=== PATIENT | female | born 1975 | race Caucasian/White ===

== ENCOUNTER 2018-03-19 17:34 | Emergency (ER) | payer OTHER ==
[~2018-03-19 17:34] MED LIST: METH750T2 PO; MOBI15TA PO
[2018-03-19 17:36] VITALS: BP 164/83; PULSE 107; RESP 20; TEMP 98.8; O2SAT 99
[2018-03-19 18:15] VITALS: BP 130/63; PULSE 102; RESP 18; O2SAT 100
--- NOTE | 2018-03-19 18:23 | PD ---
HPI Chief Complaint: Cardiac Complaint Time Seen by Provider: 17:50 Travel History International Travel<30 days: No Contact w/Intl Traveler<30days: No Traveled to known affect area: No History of Present Illness HPI The patient was seen and examined in the presence of the nurse. This patient has been having spells of palpitations for 7 days. They last a few minutes and resolved. No loss of consciousness occurs. When they occur she does feel like her heart is racing and she feels lightheaded and flushed. No chest pain is involved. She is currently symptom-free. No alleviating factors. No exacerbating factors. PFSH Past Medical History Asthma: Yes Diminished Hearing: No Herniated Disk: Yes (neck) Tubal Ligation: Yes Past Surgical History Appendectomy: Yes Social History Alcohol Use: Yes (couple of beers) Tobacco Use: No Substance Use: No Allergies-Medications (Allergen,Severity, Reaction): Coded Allergies: No Known Allergies (Unverified Adverse Reaction, Unknown, 03/19/18) Reported Meds & Prescriptions Reported Meds & Active Scripts Active Reported Rizatriptan Odt (Rizatriptan Benzoate) 10 Mg Tab Vjcqimlbpw-Pgrlfizltobfu-Yeojinck 50-325-40 Mg Tab 1 Tab PO QID PRN Do not exceed 6 tablets/day. Review of Systems General / Constitutional: No: Fever Eyes: No: Visual changes HENT: Positive: Lightheadedness, No: Headaches Cardiovascular: Positive: Palpitations, Tachycardia, No: Chest Pain or Discomfort Respiratory: No: Shortness of Breath Gastrointestinal: No: Abdominal Pain Genitourinary: No: Dysuria Musculoskeletal: No: Pain Skin: No Rash Neurologic: No: Weakness Psychiatric: No: Depression Endocrine: No: Polydipsia Hematologic/Lymphatic: No: Easy Bruising Physical Exam Narrative GENERAL: Well-nourished, well-developed patient in no apparent distress. SKIN: Focused skin assessment reveals no rash and nodules. Skin is Warm and dry. HEAD: Atraumatic. Normocephalic. EYES: Pupils equal and round. No scleral icterus. No injection or drainage. ENT: No nasal bleeding or discharge. Mucous membranes pink and moist. NECK: Trachea midline. No JVD. CARDIOVASCULAR: Regular rate and rhythm. No murmur appreciated. RESPIRATORY: No accessory muscle use. Clear to auscultation. Breath sounds equal bilaterally. GASTROINTESTINAL: Abdomen soft, non-tender, nondistended. Hepatic and splenic margins not palpable. MUSCULOSKELETAL: No obvious deformities. No clubbing. No cyanosis. No edema. NEUROLOGICAL: Awake and alert. No obvious cranial nerve deficits. Motor grossly within normal limits. Normal speech. PSYCHIATRIC: Appropriate mood and affect; insight and judgment normal. Data Data Last Documented VS Vital Signs Date Time Temp Pulse Resp B/P (MAP) Pulse Ox O2 Delivery O2 Flow Rate FiO2 03/19/18 18:40 92 18 99 Room Air 03/19/18 18:15 130/63 (85) 03/19/18 17:36 98.8 Orders Orders Electrocardiogram (03/19/18 18:20) Basic Metabolic Panel (Bmp) (03/19/18 18:20) Complete Blood Count With Diff (03/19/18 18:20) Magnesium (Mg) (03/19/18 18:20) Prothrombin Time / Inr (Pt) (03/19/18 18:20) Act Partial Throm Time (Ptt) (03/19/18 18:20) Ecg Monitoring (03/19/18 18:20) Iv Access Insert/Monitor (03/19/18 18:20) Oximetry (03/19/18 18:20) Sodium Chloride 0.9% Flush (Ns Flush) (03/19/18 18:30) Thyroid Stimulating Hormone (03/19/18 18:20) Labs Laboratory Tests Test 03/19/18 18:45 White Blood Count 11.3 TH/MM3 Red Blood Count 4.48 MIL/MM3 Hemoglobin 12.0 GM/DL Hematocrit 36.9 % Mean Corpuscular Volume 82.4 FL Mean Corpuscular Hemoglobin 26.7 PG Mean Corpuscular Hemoglobin Concent 32.5 % Red Cell Distribution Width 14.4 % Platelet Count 323 TH/MM3 Mean Platelet Volume 8.3 FL Neutrophils (%) (Auto) 68.1 % Lymphocytes (%) (Auto) 23.0 % Monocytes (%) (Auto) 6.4 % Eosinophils (%) (Auto) 1.8 % Basophils (%) (Auto) 0.7 % Neutrophils # (Auto) 7.7 TH/MM3 Lymphocytes # (Auto) 2.6 TH/MM3 Monocytes # (Auto) 0.7 TH/MM3 Eosinophils # (Auto) 0.2 TH/MM3 Basophils # (Auto) 0.1 TH/MM3 CBC Comment DIFF FINAL Differential Comment Prothrombin Time 10.0 SEC Prothromb Time International Ratio 1.0 RATIO Activated Partial Thromboplast Time 25.9 SEC Blood Urea Nitrogen 10 MG/DL Creatinine 0.94 MG/DL Random Glucose 94 MG/DL Calcium Level 9.3 MG/DL Magnesium Level 2.1 MG/DL Sodium Level 139 MEQ/L Potassium Level 4.0 MEQ/L Chloride Level 105 MEQ/L Carbon Dioxide Level 23.1 MEQ/L Anion Gap 11 MEQ/L Estimat Glomerular Filtration Rate 65 ML/MIN Thyroid Stimulating Hormone 3rd Gen 2.520 uIU/ML MDM Medical Decision Making Medical Screen Exam Complete: Yes Emergency Medical Condition: Yes Medical Record Reviewed: Yes Differential Diagnosis A. fib, SVT, ventricular tachycardia Narrative Course I have reviewed the patient's electronic medical record. IV placed and labs sent Extended cardiac monitoring shows no arrythmia I reviewed her EKG which is normal labs are normal she has had no episodes in 4+ hours and wants to go home. she should discuss holter moniter with her doctor. Diagnosis Primary Impression: Palpitations Additional Impression: Light headedness Additional Instructions: follow up with primary MD Med/Other Pt SpecificInfo: Other Disposition: 01 DISCHARGE HOME Condition: Stable Adrian Corral MD March 19, 2018 18:23
[2018-03-19] MEDS ORDERED: SODIUM CHLORIDE 0.9% FLUSH 10 ML FLUSH IVF PRN (18:30)
[2018-03-19] MEDS ORDERED: BUTATAB6 PO (18:54)
[2018-03-19] MEDS ORDERED: RIZA10TA4 (18:54)
[2018-03-19 19:07] LABS: AUTOMATED NEUTROPHIL # 7.7 TH/MM3 (1.8-7.7); BASOPHIL # 0.1 TH/MM3 (0-0.2); BASOPHIL % 0.7 % (0.0-2.0); EOSINOPHIL # 0.2 TH/MM3 (0-0.4); EOSINOPHIL % 1.8 % (0.0-4.0); HEMATOCRIT 36.9 % (35.0-46.0); LYMPHOCYTE # 2.6 TH/MM3 (1.0-4.8); MEAN CELL VOLUME 82.4 FL (80.0-100.0); MEAN CORPUSCULAR HEMOGLOBIN 26.7 PG (27.0-34.0); MEAN CORPUSCULAR HGB CONC 32.5 % (32.0-36.0); MEAN PLATELET VOLUME 8.3 FL (7.0-11.0); MONO % 6.4 % (0.0-8.0); MONOCYTE # 0.7 TH/MM3 (0-0.9); NEUT % 68.1 % (16.0-70.0); PLATELET COUNT 323 TH/MM3 (150-450); RED BLOOD COUNT 4.48 MIL/MM3 (4.00-5.30); RED CELL DISTRIBUTION WIDTH 14.4 % (11.6-17.2); WHITE BLOOD COUNT 11.3 TH/MM3 (4.0-11.0)
[2018-03-19 19:33] LABS: BICARBONATE 23.1 MEQ/L (21.0-32.0); CALCIUM 9.3 MG/DL (8.5-10.1); CREATININE 0.94 MG/DL (0.50-1.00); MAGNESIUM 2.1 MG/DL (1.5-2.5)
[2018-03-19 22:32] VITALS: BP 135/61
--- NOTE | 2018-03-21 08:19 | EKG ---
Date Performed: 03/19/2018 Time Performed: 18:25:26 PTAGE: 42 years EKG: Sinus rhythm NORMAL ECG PREVIOUS TRACING : 06/23/2014 21.55 DOCTOR: Kyle Deshpande Interpretating Date/Time 03/21/2018 08:14:35
== END 2018-03-19 22:39 | disposition home or self-care (01) ==
LOC: NEPD 17:34
DX: R00.2 Palpitations (principal); R42 Dizziness and giddiness; Z79.899 Other long term (current) drug therapy
CPT/HCPCS: 80048; 83735; 84443; 85025; 85610; 85730; 93005; 99284

== ENCOUNTER → 2018-04-02 | Outpatient (CLI) | payer OTHER ==
[~2018-04-02] MED LIST changes: +BUTATAB6 PO; -METH750T2 PO; -MOBI15TA PO; +RIZA10TA4
--- NOTE | 2018-04-04 15:44 | HM ---
Date Performed: 04/02/2018 Time Performed: 14:11:00 HOOKUP DATE: 04/02/18 02:11:00 PM Wed ANALYSIS START TIME: 04/02/2018 2:16:00 PM ANALYSIS END TIME: 04/03/2018 2:11:33 PM PATIENT AGE: 42 PATIENT HEIGHT PATIENT WEIGHT DRUG LIST PATIENT DIAGNOSIS: palpitations TEST NARRATIVE: The patient's average heart rate was 90 BPM. Heart rates greater than 120 B PM were noted 9% of the time. No episodes of bradycardia were noted. No pauses exceeding 2.0 sec onds were noted. 100 ventricular ectopics, which represented < 1% of the total beat count, were n oted. The highest ventricular ectopic frequency occurred from 06:00 AM to 07:00 AM [place]. During this time 16 VE(s) occurred. Ventricular ectopics were observed as 100 isolated beat(s) only. No couple ts or runs were noted. No supraventricular ectopics were noted. No episodes of ST depression (defined as -1.0 mm or more) were noted in channel 1. No episodes of ST depression (defined as -1.0 mm or more) were noted in channel 2. No episodes of ST depression (defined as -1.0 mm or more) were noted in channel 3. TEST INTERPRETATION: Patient monitored for 23 hours and 56 minutes. The minimum heart rate 53, m aximum heart rate 162, average is 90. The underlying rhythm is normal sinus. Occasional PVCs, occasio nal PACs, no significant arrhythmia, no evidence of atrial fibrillation. Signed by : Shweta Blood
== END ==
LOC: HCAV 13:30
PROVIDERS: ATTEND Family Medicine
DX: R00.2 Palpitations (principal)
CPT/HCPCS: 93225; 93226